=== PATIENT | male | born 1940 | race Two or more races ===

== ENCOUNTER 2023-04-20 14:55 | Emergency (ER) | payer OTHER ==
[~2023-04-20] VITALS: Ht 172.7 cm; Wt 78.0 kg
[2023-04-20 15:10] VITALS: BP 149/92; TEMP 98.7; O2SAT 100
[2023-04-20] MEDS ORDERED: oxyCODONE/APAP (5/325 MG) 1 UDTAB TABLET ONE ×2 (15:22→19:40)
[2023-04-20] MEDS: oxyCODONE/APAP (5/325 MG) 1 UDTAB TABLET PO ONE ×2 (15:27→19:42)
[2023-04-20 15:45] LABS: BASOPHILS % (AUTO) 0.2 % (0.0-2.0); EOSINOPHILS # (AUTO) 0.3 K/uL (0.0-0.7); EOSINOPHILS % (AUTO) 2.7 % (0.0-6.0); HEMATOCRIT 39 % (39-51); LYMPHOCYTES # (AUTO) 1.5 K/uL (0.8-4.8); LYMPHOCYTES % (AUTO) 12.9 % (20.0-44.0); MEAN CORPUSCULAR HEMOGLOBIN 31 PG (26.0-33.0); MEAN CORPUSCULAR HGB CONC 33 g/dl (31.0-36.0); MEAN CORPUSCULAR VOLUME 94 fL (80-96); MONOCYTES # (AUTO) 0.9 K/uL (0.1-1.30); MONOCYTES % (AUTO) 7.8 % (2.0-12.0); NEUTROPHILS # (AUTO) 8.6 K/uL (1.8-8.9); NEUTROPHILS % (AUTO) 76.4 % (43.0-81.0); PLATELET COUNT (AUTO) 184 K/uL (150-450); RED BLOOD CELL COUNT(AUTO) 4.14 MIL/uL (4.5-6.0); RED CELL DISTRIBUTION WIDTH 13.9 % (11.5-15.0); WHITE BLOOD COUNT (AUTO) 11.2 K/uL (4.3-11.0)
[2023-04-20 16:04] LABS: ALANINE AMINOTRANSFERASE 25 U/L (12-78); ALBUMIN 3.4 g/dL (3.4-5.0); ALKALINE PHOSPHATASE 104 U/L (46-116); ASPARTATE AMINOTRANSFERASE 19 U/L (15-37); BILIRUBIN,DIRECT 0.2 mg/dL (0.0-0.2); BILIRUBIN,TOTAL 0.6 mg/dL (0.2-1.0); CARBON DIOXIDE 30 mmol/L (21-32); CHLORIDE 109 mmol/L (98-107); CREATININE 1.1 mg/dL (0.6-1.3); GLUCOSE 114 mg/dL (74-106); POTASSIUM 4.1 mmol/L (3.5-5.1); SODIUM SERUM 145 mmol/L (136-145); TOTAL PROTEIN, SERUM 6.5 g/dL (6.4-8.2); UREA NITROGEN, BLOOD 20 mg/dL (7-18)
[2023-04-20 16:06] LABS: INR 1.14 (0.91-1.10); PARTIAL THROMBOPLASTIN TIME 24.1 SEC (24.3-34.3); PROTHROMBIN TIME 11.9 SECS (9.2-11.1)
[2023-04-20] MEDS ORDERED: TDAP [DIPH/PERTUSSIS/TET] 0.5 ML VIAL IM ONE (16:35)
[2023-04-20] MEDS: TDAP [DIPH/PERTUSSIS/TET] 0.5 ML VIAL IM ONE (16:49)
[2023-04-21 06:07] LABS: *BASOS 0 % (Not Estab.); *BASOS, ABSOLUTE 0.1 x10E3/uL (0.0-0.2); *EOS 1 % (Not Estab.); *EOS, ABSOLUTE 0.2 x10E3/uL (0.0-0.4); *HCT 37.2 % (37.5-51.0); *HGB 12.6 g/dL (13.0-17.7); *IMMATURE GRANULOCYTES 1 % (Not Estab.); *IMMATURE GRANULOCYTES(ABS) 0.1 x10E3/uL (0.0-0.1); *LYMPHOCYTES 12 % (Not Estab.); *MCH 32.3 pg (26.6-33.0); *MCHC 33.9 g/dL (31.5-35.7); *MCV 95 fL (79-97); *MONOCYTES 8 % (Not Estab.); *MONOS, ABSOLUTE 1.3 x10E3/uL (0.1-0.9); *NEUTROPHILS 78 % (Not Estab.); *NEUTROPHILS, ABSOLUTE 12.5 x10E3/uL (1.4-7.0); *PLT 209 x10E3/uL (150-450); *WBC 16.1 x10E3/uL (3.4-10.8)
[2023-04-21 12:07] LABS: *% CD 4 POS. LYMPH 46.3 % (30.8-58.5); *% CD 8 POS. LYMPH 15.5 % (12.0-35.5); *ABSOLUTE CD 4 HELPER 926 /uL (359-1519); *ABSOLUTE CD 8 SUPPRESSOR 310 /uL (109-897); *CD4/CD8 RATIO 2.99 (0.92-3.72)
== END 2023-04-20 20:21 | disposition short-term general hospital (02) ==
LOC: ER 14:59
DX: S72.142A Displaced intertrochanteric fracture of left femur, initial encounter for closed fracture (principal); I10 Essential (primary) hypertension; W01.0XXA Fall on same level from slipping, tripping and stumbling without subsequent striking against object, initial encounter; Y93.89 Activity, other specified; Y92.89 Other specified places as the place of occurrence of the external cause; Y99.8 Other external cause status
CPT/HCPCS: 36415; 71045-TC; 73020; 73080-TC; 73110; 73130-TC; 73700-TC; 80048-TC; 80076-TC; 85025-TC; 85730-TC; 86360; 87081-TC; 90715

== ENCOUNTER 2024-12-23 09:15 | Inpatient (IN) | payer OTHER ==
[2024-12-23] VITALS (17 sets, daily range): BP systolic 88–134; BP diastolic 51–83; TEMP 97.6–98.4; O2SAT 99–100
[~2024-12-23] VITALS: Ht 170.2 cm; Wt 73.0 kg
[2024-12-23 09:42] LABS: BASOPHILS # (AUTO) 0.1 K/uL (0.0-0.2); BASOPHILS % (AUTO) 1.7 % (0.0-2.0); EOSINOPHILS # (AUTO) 0.1 K/uL (0.0-0.7); HEMATOCRIT 39 % (39-51); HEMOGLOBIN 12.6 g/dL (13.5-17.5); LYMPHOCYTES # (AUTO) 0.6 K/uL (0.8-4.8); LYMPHOCYTES % (AUTO) 7.8 % (20.0-44.0); MEAN CORPUSCULAR HEMOGLOBIN 32 PG (26.0-33.0); MEAN CORPUSCULAR HGB CONC 33 g/dl (31.0-36.0); MEAN CORPUSCULAR VOLUME 99 fL (80-96); MONOCYTES # (AUTO) 0.4 K/uL (0.1-1.30); MONOCYTES % (AUTO) 5.6 % (2.0-12.0); NEUTROPHILS # (AUTO) 6.2 K/uL (1.8-8.9); NEUTROPHILS % (AUTO) 82.9 % (43.0-81.0); PLATELET COUNT (AUTO) 153 K/uL (150-450); RED CELL DISTRIBUTION WIDTH 16.1 % (11.5-15.0); WHITE BLOOD COUNT (AUTO) 7.5 K/uL (4.3-11.0)
[2024-12-23 09:47] LABS: ABG BASE EXCESS 6.9 mmol/L (-2.0-3.0); ABG OXYGEN SATURATION 99.3 % (94.0-98.0); ABG PCO2 69.7 mmHg (35.0-48.0); ABG PH 7.322 (7.350-7.450); ABG PO2 309.7 mmHg (83.0-108.0); COHb 0.5 % (0.5-1.5); MetHb 0.3 % (0.0-1.5); O2Hb 98.5 % (94.0-97.0); SITE, ABG RIGHT RADIAL
[2024-12-23 09:48] LABS: CALCIUM, SERUM 8.6 mg/dL (8.5-10.1); CARBON DIOXIDE 38 mmol/L (21-32); CHLORIDE 105 mmol/L (98-107); GLUCOSE 86 mg/dL (74-106); POTASSIUM 5.1 mmol/L (3.5-5.1); SODIUM SERUM 142 mmol/L (136-145); UREA NITROGEN, BLOOD 23 mg/dL (7-18)
[2024-12-23 09:54] LABS: ALANINE AMINOTRANSFERASE 15 U/L (12-78); ALBUMIN 2.9 g/dL (3.4-5.0); ALKALINE PHOSPHATASE 85 U/L (46-116); ASPARTATE AMINOTRANSFERASE 14 U/L (15-37); BILIRUBIN,DIRECT 0.2 mg/dL (0.0-0.2); BILIRUBIN,TOTAL 0.7 mg/dL (0.2-1.0); TOTAL PROTEIN, SERUM 6.7 g/dL (6.4-8.2)
[2024-12-23 09:56] LABS: LACTIC ACID 1.3 mmol/L (0.4-2.0)
[2024-12-23] MEDS: CEFTRIAXONE 1 G in IV D5W 50 ML IV ONE (10:00)
[2024-12-23] MEDS: IV NS 0.9% 1,000 ML BAG IV ONE (10:00)
[2024-12-23 10:14] LABS: INR 1.33 (0.91-1.10); PROTHROMBIN TIME 13.8 SECS (9.2-11.1)
[2024-12-23] MEDS: FUROSEMIDE 40 MG/4 ML VIAL IV ONE ×2 (10:30→12:53)
[2024-12-23] MEDS: methylPREDNISolone SOD SUCC 125 MG/2ML VIAL IV ONE (10:30)
[2024-12-23] MEDS ORDERED: FUROSEMIDE 40 MG/4 ML VIAL ONE (10:31)
[2024-12-23] MEDS ORDERED: methylPREDNISolone SOD SUCC 125 MG/2ML VIAL ONE (10:31)
[2024-12-23] MEDS: IPRATROPIUM NEB FS 0.5 MG/2.5 ML AMPUL.NEB NEB SCH (11:00)
[2024-12-23 11:30] LABS: ABG OXYGEN SATURATION 97.8 % (94.0-98.0); ABG PCO2 71.5 mmHg (35.0-48.0); ABG PH 7.305 (7.350-7.450); ABG PO2 113.2 mmHg (83.0-108.0); ABG TOTAL HEMOGLOBIN 13.5 G/dL (13.5-17.5); COHb 0.7 % (0.5-1.5); MetHb 0.3 % (0.0-1.5); O2Hb 96.8 % (94.0-97.0); SITE, ABG RIGHT RADIAL
[2024-12-23] MEDS ORDERED: ONDANSETRON HCL/PF 4 MG/2 ML VIAL IVP PRN (11:30)
[2024-12-23] MEDS ORDERED: ACETAMINOPHEN 325 MG TABLET PO PRN (11:30)
[2024-12-23] MEDS ORDERED: MAGNESIUM HYDROXIDE 30 ML UDC PO PRN (11:30)
[2024-12-23] MEDS ORDERED: Z GUARD REMEDY 4 OZ OINT TP PRN (11:30)
[2024-12-23] MEDS ORDERED: MAG HYDROX/AL HYDROX/SIMETH 30 ML UDC PO PRN (11:30)
[2024-12-23] MEDS ORDERED: IPRATROPIUM NEB FS 0.5 MG/2.5 ML AMPUL.NEB NEB PRN (11:30)
[2024-12-23] MEDS ORDERED: ALBUTEROL FS 2.5 MG/0.5 ML VIAL.NEB NEB PRN (11:30)
[2024-12-23] MEDS: AZITHROMYCIN 500 MG in IV D5W 250 ML IV ONE (11:45)
[2024-12-23 11:49] LABS: ANISOCYTOSIS 1+; EOSINOPHILS % (MANUAL) 1 % (0-4); LYMPHOCYTES % (MANUAL) 7 % (16-48); MONOCYTES % (MANUAL) 5 % (0-11.0); NEUTROPHILS % (MANUAL) 87 (42-76); PLATELET ESTIMATE ADEQUATE
[2024-12-23] MEDS: ENOXAPARIN SODIUM 40 MG/0.4 ML DISP.SYRIN SQ SCH (12:53)
[2024-12-23] MEDS: methylPREDNISolone SOD SUCC 125 MG/2ML VIAL IV SCH (12:53)
[2024-12-23 12:56] LABS: APPEARANCE,URINE CLEAR (CLEAR); BILIRUBIN,URINE NEGATIVE (NEGATIVE); BLOOD, URINE 2+ Ery/uL (NEGATIVE); COLOR,URINE DARK YELLOW (YELLOW); KETONES,URINE NEGATIVE (NEGATIVE); LEUKOCYTE ESTERASE ,URINE 1+ (NEGATIVE); NITRITE, URINE POSITIVE (NEGATIVE); PROTEIN,URINE 1+ mg/dl (NEGATIVE); UGLUCOSE NEGATIVE (NEGATIVE); UROBILINOGEN,URINE 0.2 EU/dL (0.2)
[2024-12-23 13:01] LABS: ADD URINE CULTURE YES; BACTERIA,URINE 2+ /HPF (None Seen); WBC,URINE 21-50 /HPF (0-3)
[2024-12-23 13:02] LABS: MUCUS,URINE Few /LPF (None Seen); URINE AMORPHOUS URATE Few /HPF (None Seen)
[2024-12-23] MEDS ORDERED: ZOLPIDEM TARTRATE 5 MG TABLET PO PRN (22:00)
[2024-12-24] VITALS (37 sets, daily range): BP systolic 81–118; BP diastolic 52–81; TEMP 97.8–99.3; O2SAT 94–100
[2024-12-24 04:24] LABS: BASOPHILS % (AUTO) 0.3 % (0.0-2.0); HEMATOCRIT 33 % (39-51); HEMOGLOBIN 11.2 g/dL (13.5-17.5); LYMPHOCYTES # (AUTO) 0.6 K/uL (0.8-4.8); LYMPHOCYTES % (AUTO) 13.8 % (20.0-44.0); MEAN CORPUSCULAR HEMOGLOBIN 33 PG (26.0-33.0); MEAN CORPUSCULAR HGB CONC 34 g/dl (31.0-36.0); MEAN CORPUSCULAR VOLUME 98 fL (80-96); MONOCYTES # (AUTO) 0.2 K/uL (0.1-1.30); MONOCYTES % (AUTO) 4.4 % (2.0-12.0); NEUTROPHILS # (AUTO) 3.5 K/uL (1.8-8.9); NEUTROPHILS % (AUTO) 81.5 % (43.0-81.0); PLATELET COUNT (AUTO) 134 K/uL (150-450); RED BLOOD CELL COUNT(AUTO) 3.37 MIL/uL (4.5-6.0); RED CELL DISTRIBUTION WIDTH 15.3 % (11.5-15.0); WHITE BLOOD COUNT (AUTO) 4.3 K/uL (4.3-11.0)
[2024-12-24 04:38] LABS: CALCIUM, SERUM 8.5 mg/dL (8.5-10.1); CREATININE 0.9 mg/dL (0.6-1.3); MAGNESIUM 2.1 mg/dL (1.8-2.4); PHOSPHORUS 4.2 mg/dL (2.5-4.9); POTASSIUM 4.2 mmol/L (3.5-5.1)
[2024-12-24 04:50] LABS: THYROID STIMULATING HORMONE 0.92 uIU/mL (0.358-3.74)
[2024-12-24] MEDS: PANTOPRAZOLE 40 MG TABLET.DR PO SCH (07:30)
[2024-12-24] MEDS: FUROSEMIDE 40 MG/4 ML VIAL IV SCH (09:10)
[2024-12-24 09:22] LABS: ABG BASE EXCESS 9.9 mmol/L (-2.0-3.0); ABG OXYGEN SATURATION 97.9 % (94.0-98.0); ABG PCO2 55.2 mmHg (35.0-48.0); ABG PH 7.431 (7.350-7.450); ABG PO2 116.2 mmHg (83.0-108.0); ABG TOTAL HEMOGLOBIN 12.1 G/dL (13.5-17.5); COHb 0.3 % (0.5-1.5); MetHb 0.3 % (0.0-1.5); O2Hb 97.3 % (94.0-97.0); SITE, ABG RIGHT RADIAL
[2024-12-24] MEDS: CEFTRIAXONE 1 G in IV D5W 50 ML IV SCH (10:22)
[2024-12-24] MEDS: AZITHROMYCIN 500 MG in IV D5W 250 ML IV SCH (10:41)
[2024-12-25] VITALS (24 sets, daily range): BP systolic 79–116; BP diastolic 55–84; TEMP 97–98.4; O2SAT 95–100
[2024-12-25 04:40] LABS: BASOPHILS # (AUTO) 0.1 K/uL (0.0-0.2); BASOPHILS % (AUTO) 0.6 % (0.0-2.0); HEMATOCRIT 35 % (39-51); HEMOGLOBIN 11.6 g/dL (13.5-17.5); LYMPHOCYTES # (AUTO) 0.4 K/uL (0.8-4.8); LYMPHOCYTES % (AUTO) 4.3 % (20.0-44.0); MEAN CORPUSCULAR HEMOGLOBIN 32 PG (26.0-33.0); MEAN CORPUSCULAR HGB CONC 33 g/dl (31.0-36.0); MEAN CORPUSCULAR VOLUME 97 fL (80-96); MONOCYTES # (AUTO) 0.4 K/uL (0.1-1.30); MONOCYTES % (AUTO) 3.8 % (2.0-12.0); NEUTROPHILS # (AUTO) 9.3 K/uL (1.8-8.9); NEUTROPHILS % (AUTO) 91.3 % (43.0-81.0); PLATELET COUNT (AUTO) 137 K/uL (150-450); RED BLOOD CELL COUNT(AUTO) 3.62 MIL/uL (4.5-6.0); RED CELL DISTRIBUTION WIDTH 15.9 % (11.5-15.0); WHITE BLOOD COUNT (AUTO) 10.2 K/uL (4.3-11.0)
[2024-12-25 08:30] LABS: CALCIUM, SERUM 8.5 mg/dL (8.5-10.1); CREATININE 1.1 mg/dL (0.6-1.3); MAGNESIUM 2.3 mg/dL (1.8-2.4); PHOSPHORUS 4.8 mg/dL (2.5-4.9); POTASSIUM 4.5 mmol/L (3.5-5.1)
[2024-12-25] MEDS: methylPREDNISolone SOD SUCC 125 MG/2ML VIAL IV SCH (10:52)
[2024-12-26] VITALS (11 sets, daily range): BP systolic 97–116; BP diastolic 68–84; TEMP 97.5–98.2; O2SAT 92–100
[2024-12-26 06:39] LABS: HEMATOCRIT 37 % (39-51); LYMPHOCYTES # (AUTO) 0.5 K/uL (0.8-4.8); LYMPHOCYTES % (AUTO) 4.5 % (20.0-44.0); MEAN CORPUSCULAR HEMOGLOBIN 32 PG (26.0-33.0); MEAN CORPUSCULAR HGB CONC 32 g/dl (31.0-36.0); MEAN CORPUSCULAR VOLUME 100 fL (80-96); NEUTROPHILS # (AUTO) 9.4 K/uL (1.8-8.9); NEUTROPHILS % (AUTO) 86.5 % (43.0-81.0); PLATELET COUNT (AUTO) 126 K/uL (150-450); RED CELL DISTRIBUTION WIDTH 15.9 % (11.5-15.0); WHITE BLOOD COUNT (AUTO) 10.9 K/uL (4.3-11.0)
[2024-12-26 06:44] LABS: CALCIUM, SERUM 8.4 mg/dL (8.5-10.1); CREATININE 0.8 mg/dL (0.6-1.3); MAGNESIUM 2.2 mg/dL (1.8-2.4); PHOSPHORUS 2.8 mg/dL (2.5-4.9)
[2024-12-26 06:51] LABS: POTASSIUM 4.2 mmol/L (3.5-5.1)
[2024-12-26 16:36] LABS: URINE TOTAL PROTEIN 19.8 mg/dL (0-11.9)
== END 2024-12-26 19:03 | disposition short-term general hospital (02) | DRG 291 ==
LOC: ER 09:23 → ICU 10:46 → TELE1 12-25 17:57
PROVIDERS: ADMIT Student in an Organized Health Care Education/Training Program
PROC: 5A09457 Assistance with Respiratory Ventilation, 24-96 Consecutive Hours, Continuous Positive Airway Pressure (ICD-10-PCS; principal; 2024-12-23)
DX: I11.0 Hypertensive heart disease with heart failure (principal); G92.8 Other toxic encephalopathy; I50.23 Acute on chronic systolic (congestive) heart failure; J96.21 Acute and chronic respiratory failure with hypoxia; J96.22 Acute and chronic respiratory failure with hypercapnia; J15.9 Unspecified bacterial pneumonia; E44.0 Moderate protein-calorie malnutrition; N17.9 Acute kidney failure, unspecified; N39.0 Urinary tract infection, site not specified; J90 Pleural effusion, not elsewhere classified; E86.0 Dehydration; I48.91 Unspecified atrial fibrillation; D64.9 Anemia, unspecified; M89.8X9 Other specified disorders of bone, unspecified site; E83.9 Disorder of mineral metabolism, unspecified; Z85.46 Personal history of malignant neoplasm of prostate; Z99.81 Dependence on supplemental oxygen; Z20.822 Contact with and (suspected) exposure to COVID-19; Z68.25 Body mass index [BMI] 25.0-25.9, adult; B96.4 Proteus (mirabilis) (morganii) as the cause of diseases classified elsewhere
CPT/HCPCS: 36415; 36600; 70450-TC; 71045-TC; 71250-TC; 80048-TC; 80076-TC; 81001; 82570-TC; 82803-TC; 83605-TC; 83735-TC; 83880; 84100-TC; 84300-TC; 84443-TC; 84484-TC; 85025-TC; 85730-TC; 87040-TC; 87081-TC; 87086-TC; 87186-TC; 93307-TC; 94660; 94760-TC; 94799-TC; 99082-TC; A4223; G0378; J0456; J0696; J1650; J1938; J2919; J7030; J7042; J7050; J7060

== ENCOUNTER 2025-02-22 06:45 | Emergency (ER) | payer OTHER, MEDICAID ==
[~2025-02-22] VITALS: Ht 177.8 cm; Wt 77.1 kg
[2025-02-22] MEDS ORDERED: AZITHROMYCIN 500 MG VIAL ONE (07:09)
[2025-02-22] MEDS ORDERED: CEFTRIAXONE 1GM BAG (ER ONLY) 50 ML IV ONE (07:09)
[2025-02-22] MEDS: CEFTRIAXONE 1GM BAG (ER ONLY) 50 ML IV ONE (07:12)
[2025-02-22 07:22] LABS: PLATELET COUNT (AUTO) 130 K/uL (150-450); RED BLOOD CELL COUNT(AUTO) 3.79 MIL/uL (4.5-6.0); RED CELL DISTRIBUTION WIDTH 16.2 % (11.5-15.0); WHITE BLOOD COUNT (AUTO) 5.8 K/uL (4.3-11.0)
[2025-02-22 07:32] LABS: CALCIUM, SERUM 8.3 mg/dL (8.5-10.1); CREATININE 0.8 mg/dL (0.6-1.3); SODIUM SERUM 143 mmol/L (136-145); UREA NITROGEN, BLOOD 23 mg/dL (7-18)
[2025-02-22 07:36] LABS: INR 1.43 (0.91-1.10)
[2025-02-22 07:38] LABS: LACTIC ACID 0.7 mmol/L (0.4-2.0)
[2025-02-22 07:46] LABS: ASPARTATE AMINOTRANSFERASE 26 U/L (15-37); NT-PRO BNP 4335 pg/mL (0-125)
[2025-02-22 07:47] LABS: TOTAL PROTEIN, SERUM 6.2 g/dL (6.4-8.2)
[2025-02-22] MEDS: FUROSEMIDE 20 MG/2 ML VIAL IV ONE (08:00)
[2025-02-22] MEDS: AZITHROMYCIN 500 MG in IV D5W 250 ML IV ONE (08:00)
[2025-02-22] MEDS ORDERED: FUROSEMIDE 20 MG/2 ML VIAL ONE (08:07)
[2025-02-22 12:00] LABS: APPEARANCE,URINE CLEAR (CLEAR); BLOOD, URINE 1+ Ery/uL (NEGATIVE); LEUKOCYTE ESTERASE ,URINE NEGATIVE (NEGATIVE); NITRITE, URINE NEGATIVE (NEGATIVE); UGLUCOSE NEGATIVE (NEGATIVE)
[2025-02-22 12:27] LABS: ADD URINE CULTURE NO; SQUAMOUS EPITHELIAL CELL,UR 0-2 /HPF (None Seen)
[2025-02-22 12:42] VITALS: BP 109/73; TEMP 98.2; O2SAT 99
== END 2025-02-22 12:52 | disposition short-term general hospital (02) ==
LOC: ER 06:55
DX: I11.0 Hypertensive heart disease with heart failure (principal); I50.9 Heart failure, unspecified; R09.02 Hypoxemia; Z85.46 Personal history of malignant neoplasm of prostate; Z20.822 Contact with and (suspected) exposure to COVID-19
CPT/HCPCS: 99285; 96365; 71045; 96366; 96375; 87426; 96368; 93005; 87804 ×2; 84145; 85025; 80048; 87040 ×2; 87086; 83605; 80076; 81001; 36415; 84484 ×2; 85730; 83880; J1938; J0456; A4223; J0696